=== PATIENT | female | born 1950 | race African-American/Black ===

== ENCOUNTER 2016-10-15 16:00 | Outpatient (RCR) | payer OTHER ==
[~2016-10-15 16:00] MED LIST: ATENOLOL; BENADRYL; DOXIL; GABA; GABAPENTIN; POTASSIUM; TRAMADOL HCL50 MG ORAL
== END 2016-10-30 | disposition home or self-care (01) ==
LOC: PTY 16:00
DX: M17.12 Unilateral primary osteoarthritis, left knee (principal); Z96.653 Presence of artificial knee joint, bilateral; I10 Essential (primary) hypertension